=== PATIENT | male | born 2000 | race Caucasian/White ===

== ENCOUNTER 2019-04-12 19:26 | Emergency (ER) | payer MEDICARE ==
[~2019-04-12] VITALS: Ht 170.2 cm; Wt 81.8 kg
[2019-04-12 19:34] VITALS: Ht 170.2 cm; Wt 81.8 kg
[2019-04-12 20:03] LABS: APPEARANCE CLEAR (CLEAR); BILIRUBIN NEGATIVE (NEGATIVE); COLOR YELLOW (YELLOW); GLUCOSE NEGATIVE (NEGATIVE); KETONE NEGATIVE (NEGATIVE); NITRITE NEGATIVE (NEGATIVE); PROTEIN NEGATIVE (NEGATIVE); UROBILINOGEN NORMAL (NORMAL)
[2019-04-12 20:14] LABS: UDS - AMPHET NEGATIVE QUAL (NEGATIVE); UDS - BARB NEGATIVE QUAL (NEGATIVE); UDS - BENZO NEGATIVE QUAL (NEGATIVE); UDS - COCAINE NEGATIVE QUAL (NEGATIVE); UDS - OPIATE NEGATIVE QUAL (NEGATIVE); UDS - PCP NEGATIVE QUAL (NEGATIVE); UDS - THC NEGATIVE QUAL (NEGATIVE)
[2019-04-12 20:28] LABS: BASOPHILS 0.2 % (0-2); EOSINOPHILS 1.3 % (0-7); HEMATOCRIT 40.9 % (42.0-54.0); IMMATURE GRANULOCYTES 0.2 % (0-5); LYMPHOCYTES 29.6 % (15-50); MCH 29.9 pg (26.0-34.0); MCHC 34.2 g/dL (31.0-37.0); MCV 87.2 fL (80.0-100.0); MEAN PLATELET VOLUME 10.4 fL (7.4-10.4); MONOCYTES 10.2 % (2-11); NEUTROPHILS 58.5 % (40-80); PLATELET COUNT 231 10x3/uL (130-400); RBC 4.69 10x6/uL (4.20-6.10); RDW 13.3 % (11.5-14.5); WBC 6.3 10x3/uL (4.8-10.8)
[2019-04-12 20:38] LABS: ALKALINE PHOSPHATASE 94 U/L (46-116); ALT (SGPT) 19 U/L (10-68); BILIRUBIN - TOTAL 0.26 mg/dL (0.2-1.3); CALC OSMOLALITY 279 mosm/kg (275-300); CALCIUM 9.2 mg/dL (8.5-10.1); CARBON DIOXIDE 25.5 mmol/L (21.0-32.0); CHLORIDE - SERUM 104 mmol/L (98-107); CREATININE - SERUM 0.8 mg/dL (0.6-1.3); GLUCOSE 111 mg/dL (74-106); MAGNESIUM - SERUM 1.9 mg/dL (1.8-2.4); POTASSIUM - SERUM 3.8 mmol/L (3.5-5.1); PROTEIN - SERUM 7.7 g/dL (6.4-8.2); SODIUM 140 mmol/L (136-145); UREA NITROGEN 12 mg/dL (7-18); eGFR NON AFRICAN AMERICAN > 90 mL/min (90-120)
[2019-04-12] MEDS ORDERED: ZOLOFT100 MG PO (21:09)
[2019-04-12] MEDS ORDERED: ZYPREXA5 MG (21:09)
[2019-04-12] MEDS ORDERED: ZYPREXA5 MG PO (21:09)
[2019-04-12] MEDS ORDERED: DEPAKOTE500 MG PO (21:09)
[2019-04-12] MEDS ORDERED: THORAZINE50 MG PO (21:10)
[2019-04-12] MEDS ORDERED: AMBIEN5 MG (21:10)
--- NOTE | 2019-04-13 00:37 | NUR ---
DR MAHER NOTIFIED AND SITTER ORDERED.SITTER AT BEDSIDE, NOTIFIED CHARGE NURSE AND ATTENDING IN REGARDS TO ASSESSMENT FINDINGS, RESOURCES GIVEN TO PT AND SAFETY PLAN INITATED.
[2019-04-13 05:37] VITALS: BP 110/66
== END 2019-04-13 05:40 ==
LOC: D.ER 19:26
PROVIDERS: Family Medicine
DX: R45.851 Suicidal ideations (principal)

== ENCOUNTER 2019-04-27 19:56 | Emergency (ER) | payer MEDICARE ==
[~2019-04-27] VITALS: Ht 170.2 cm; Wt 86.4 kg
[~2019-04-27 19:56] MED LIST: AMBIEN5 MG; DEPAKOTE500 MG PO; THORAZINE50 MG PO; ZOLOFT100 MG PO; ZYPREXA5 MG; ZYPREXA5 MG PO
[2019-04-27 20:03] VITALS: Ht 170.2 cm; Wt 86.4 kg
[2019-04-27 20:32] LABS: APPEARANCE CLEAR (CLEAR); BILIRUBIN NEGATIVE (NEGATIVE); COLOR YELLOW (YELLOW); GLUCOSE NEGATIVE (NEGATIVE); KETONE NEGATIVE (NEGATIVE); NITRITE NEGATIVE (NEGATIVE); PROTEIN NEGATIVE (NEGATIVE); UDS - AMPHET NEGATIVE QUAL (NEGATIVE); UDS - BARB NEGATIVE QUAL (NEGATIVE); UDS - BENZO NEGATIVE QUAL (NEGATIVE); UDS - COCAINE NEGATIVE QUAL (NEGATIVE); UDS - OPIATE NEGATIVE QUAL (NEGATIVE); UDS - PCP NEGATIVE QUAL (NEGATIVE); UDS - THC NEGATIVE QUAL (NEGATIVE); UROBILINOGEN NORMAL (NORMAL)
[2019-04-27 20:37] LABS: BASOPHILS 0.3 % (0-2); EOSINOPHILS 0.9 % (0-7); HEMOGLOBIN 14.8 g/dL (13.5-17.5); IMMATURE GRANULOCYTES 0.2 % (0-5); LYMPHOCYTES 30.9 % (15-50); MCH 29.8 pg (26.0-34.0); MCHC 33.6 g/dL (31.0-37.0); MCV 88.5 fL (80.0-100.0); MEAN PLATELET VOLUME 10.5 fL (7.4-10.4); NEUTROPHILS 57.7 % (40-80); RBC 4.97 10x6/uL (4.20-6.10); RDW 13.1 % (11.5-14.5); WBC 8.6 10x3/uL (4.8-10.8)
[2019-04-27 20:38] LABS: ALBUMIN 3.9 g/dL (3.4-5.0); ALKALINE PHOSPHATASE 102 U/L (46-116); ALT (SGPT) 16 U/L (10-68); CALC OSMOLALITY 283 mosm/kg (275-300); CALCIUM 9.1 mg/dL (8.5-10.1); CARBON DIOXIDE 30.6 mmol/L (21.0-32.0); CHLORIDE - SERUM 104 mmol/L (98-107); CREATININE - SERUM 0.8 mg/dL (0.6-1.3); GLUCOSE 131 mg/dL (74-106); POTASSIUM - SERUM 3.7 mmol/L (3.5-5.1); PROTEIN - SERUM 7.9 g/dL (6.4-8.2); SODIUM 142 mmol/L (136-145); UREA NITROGEN 11 mg/dL (7-18); eGFR NON AFRICAN AMERICAN > 90 mL/min (90-120)
[2019-04-27 20:40] LABS: MAGNESIUM - SERUM 1.7 mg/dL (1.8-2.4); VALPROIC ACID (DEPAKOTE) 50.8 ug/mL (50.0-100.0)
[2019-04-27 20:47] LABS: PLATELET COUNT 331 10x3/uL (130-400)
--- NOTE | 2019-04-27 20:49 | NUR ---
DR. MAHER NOTIFIED AND SITTER ORDERED. SITTER AT BEDSIDE. NOTIFIED CHARGE NURSE AND ATTENDING IN REGARDS TO ASSESSMENT FINDINGS. RESOUCRES GIVEN TO PT AND SAFETY PLAN INTIATED.
[2019-04-28 02:32] VITALS: BP 118/71
== END 2019-04-28 02:32 | disposition other institution (70) ==
LOC: D.ER 19:56
PROVIDERS: Emergency Medicine
DX: R45.851 Suicidal ideations (principal)

== ENCOUNTER 2019-05-08 18:51 | Emergency (ER) | payer MEDICARE ==
[~2019-05-08] VITALS: Ht 170.2 cm; Wt 93.2 kg
[2019-05-08 19:00] VITALS: Ht 170.2 cm; Wt 93.2 kg
[2019-05-08] MEDS ORDERED: MOOD STABILIZER (19:01)
[2019-05-08 19:44] LABS: BASOPHILS 0.2 % (0-2); EOSINOPHILS 0.6 % (0-7); HEMATOCRIT 40.9 % (42.0-54.0); HEMOGLOBIN 13.6 g/dL (13.5-17.5); IMMATURE GRANULOCYTES 0.3 % (0-5); MCH 29.8 pg (26.0-34.0); MCHC 33.3 g/dL (31.0-37.0); MCV 89.7 fL (80.0-100.0); MONOCYTES 8.5 % (2-11); NEUTROPHILS 70.4 % (40-80); PLATELET COUNT 266 10x3/uL (130-400); RBC 4.56 10x6/uL (4.20-6.10); RDW 13.3 % (11.5-14.5)
[2019-05-08 19:48] LABS: APPEARANCE CLEAR (CLEAR); BILIRUBIN NEGATIVE (NEGATIVE); COLOR YELLOW (YELLOW); GLUCOSE NEGATIVE (NEGATIVE); KETONE NEGATIVE (NEGATIVE); NITRITE NEGATIVE (NEGATIVE); PROTEIN NEGATIVE (NEGATIVE); SPECIFIC GRAVITY 1.015 (1.005-1.020); UROBILINOGEN NORMAL (NORMAL)
[2019-05-08 20:20] LABS: UDS - AMPHET NEGATIVE QUAL (NEGATIVE); UDS - BARB NEGATIVE QUAL (NEGATIVE); UDS - BENZO NEGATIVE QUAL (NEGATIVE); UDS - COCAINE NEGATIVE QUAL (NEGATIVE); UDS - OPIATE NEGATIVE QUAL (NEGATIVE); UDS - PCP NEGATIVE QUAL (NEGATIVE); UDS - THC NEGATIVE QUAL (NEGATIVE)
[2019-05-08 20:25] LABS: ALKALINE PHOSPHATASE 87 U/L (46-116); ALT (SGPT) 11 U/L (10-68); BILIRUBIN - TOTAL 0.14 mg/dL (0.2-1.3); CALC OSMOLALITY 277 mosm/kg (275-300); CARBON DIOXIDE 28.4 mmol/L (21.0-32.0); CHLORIDE - SERUM 101 mmol/L (98-107); CREATININE - SERUM 0.8 mg/dL (0.6-1.3); GLUCOSE 103 mg/dL (74-106); POTASSIUM - SERUM 3.9 mmol/L (3.5-5.1); PROTEIN - SERUM 7.8 g/dL (6.4-8.2); SODIUM 139 mmol/L (136-145); UREA NITROGEN 13 mg/dL (7-18); eGFR NON AFRICAN AMERICAN > 90 mL/min (90-120)
[2019-05-08 20:26] LABS: MAGNESIUM - SERUM 1.7 mg/dL (1.8-2.4); VALPROIC ACID (DEPAKOTE) 54.5 ug/mL (50.0-100.0)
--- NOTE | 2019-05-08 22:34 | NUR ---
DR MAHER NOTIFIED AND SITTER ORDERED. SITTER AT BEDSIDE. NOTIFIED CHARGE NURSE AND ATTENDING IN REGARDS TO ASSESSMENT FINDINGS. RESOURCES GIVEN TO PT AND SAFETY PLAN INITIATED.
[2019-05-09 03:39] VITALS: BP 127/73
== END 2019-05-09 03:40 ==
LOC: D.ER 18:51
PROVIDERS: Family Medicine
DX: R45.851 Suicidal ideations (principal)